=== PATIENT | female | born 1970 | race Caucasian/White ===

== ENCOUNTER 2024-02-15 06:32 | Outpatient (CLI) | payer BC, SELFPAY ==
--- NOTE | ~2024-02-15 | CT_ITS ---
CT of the Abdomen and Pelvis: Indication: Renal structural abnormality Technique: 2.5 mm axial scans were obtained through the abdomen and pelvis prior to and following in travenous administration of 100 cc of Omnipaque 350. Dose reduction technique was used on this scan b y utilizing automated exposure control and iterative reconstruction technique. The dose-length produc t (DLP) was 876.44 mGy-cm. Findings: Scans through the lung bases demonstrate linear scarring at the right middle lobe. The liver, spleen, pancreas, gallbladder, adrenals and left kidney are within normal limits. Punctate nonobstructing right renal stone present. 4.4 cm simple right lower pole renal cyst present. There a re atherosclerotic calcifications of the aorta. No lymphadenopathy. No bowel obstruction or bowel wall thickening. There is no evidence to suggest acute appendicitis. Images through the pelvis were performed. Urinary bladder unremarkable. No pelvic mass seen. No ascit es. Impression: Punctate nonobstructing right renal stone. 4.4 cm right lower pole renal cyst. Reviewed, dictated and finalized at location . Impression: Punctate nonobstructing right renal stone. 4.4 cm right lower pole renal cyst.
== END 2024-02-15 06:33 | disposition home or self-care (01) ==
PROVIDERS: Visit Provider Urology
DX: Q63.9 Congenital malformation of kidney, unspecified (principal); N20.0 Calculus of kidney; N20.1 Calculus of ureter
CPT/HCPCS: 74178; Q9967